=== PATIENT | male | born 1970 | race African-American/Black ===

== ENCOUNTER 2018-01-21 04:21 | Emergency (ER) | payer OTHER ==
[~2018-01-21] VITALS: Ht 170.2 cm; Wt 77.0 kg
[2018-01-21 05:07] LABS: BASOPHILS % 1.1 % (0.0-2.0); EOSINOPHILS % 0.9 % (0.0-5.0); HEMATOCRIT. 32.1 % (42.0-52.0); HEMOGLOBIN. 11.5 g/dL (14.0-18.0); LYMPHOCYTES % 29.1 % (20.0-50.0); MEAN CORPUSCULAR HEMOGLOBIN 37.3 pg (28.0-32.0); MEAN CORPUSCULAR VOLUME 104.4 fL (80.0-94.0); MONOCYTES % 8.9 % (2.0-8.0); RED BLOOD CELL COUNT 3.08 mill/uL (4.7-6.1); RED CELL DISTRIBUTION WIDTH 15.2 % (11.6-14.6)
[2018-01-21 05:11] LABS: CHLORIDE 101 mEq/L (98-107)
[2018-01-21 05:14] LABS: INR 1.9; PROTHROMBIN TIME 19.7 sec (9.4-11.6)
[2018-01-21 05:21] LABS: T4 FREE 1.34 ng/dL (0.76-1.46)
[2018-01-21 05:32] LABS: MEAN PLATELET VOLUME 8.7 fl (7.4-10.4)
[2018-01-21 05:33] LABS: PLATELET 75 x1000/uL (130-400)
[2018-01-21] MEDS ORDERED: SODIUM CHLORIDE 0.9% 1,000 ML IV ONE (06:35)
[2018-01-21 07:33] LABS: D-DIMER 0.71 mg/L FEU (<0.50); PROTHROMBIN TIME 21.1 sec (9.4-11.6)
[2018-01-21] MEDS ORDERED: IOHEXOL-350 100 ML BOTTLE ONE ×2 (09:35→09:47)
[2018-01-21 11:00] VITALS: BP 120/88
== END 2018-01-21 11:03 | disposition home or self-care (01) ==
LOC: ER 04:30
DX: R00.2 Palpitations (principal); D69.6 Thrombocytopenia, unspecified; D53.9 Nutritional anemia, unspecified; D68.9 Coagulation defect, unspecified; R79.89 Other specified abnormal findings of blood chemistry; I10 Essential (primary) hypertension; F43.10 Post-traumatic stress disorder, unspecified; Z88.0 Allergy status to penicillin
CPT/HCPCS: 36415; 71045; 71275; 80053; 83880; 84439; 84443; 84484; 85025; 85379; 85610; 96360; 96361; 99285; G0482; J7030; Q9967; 93005

== ENCOUNTER 2019-01-06 15:36 | Emergency (ER) | payer OTHER ==
[~2019-01-06] VITALS: Ht 170.2 cm; Wt 81.0 kg
[2019-01-06 15:45] VITALS: BP 134/87
== END 2019-01-06 16:32 | disposition home or self-care (01) ==
LOC: ER 15:36
DX: B00.9 Herpesviral infection, unspecified (principal); K76.9 Liver disease, unspecified; I10 Essential (primary) hypertension; Z88.0 Allergy status to penicillin
CPT/HCPCS: 99281

== ENCOUNTER 2024-10-04 03:10 | Emergency (ER) | payer OTHER ==
[~2024-10-04] VITALS: Ht 170.2 cm; Wt 88.0 kg
[2024-10-04 03:46] VITALS: TEMP 98.4; O2SAT 98
[2024-10-04 04:45] LABS: CHLORIDE 106 mEq/L (98-107); POTASSIUM 3.5 mEq/L (3.5-5.1); SODIUM 137 mEq/L (136-145)
[2024-10-04 04:46] LABS: CALCIUM 10.2 mg/dL (8.7-10.4); CARBON DIOXIDE 20 mEq/L (21-32)
[2024-10-04 04:48] LABS: BASOPHILS % 0.4 % (0.0-2.0); DIFFERENTIAL COMMENT 0; EOSINOPHILS % 0.3 % (0.0-5.0); HEMOGLOBIN. 11.1 g/dL (14.0-18.0); INR 1.3; MEAN CORPUSCULAR HEMOGLOBIN 35.8 pg (28.0-32.0); MEAN CORPUSCULAR HGB CONC 33.6 g/dL (31.0-37.0); MEAN CORPUSCULAR VOLUME 106.6 fL (80.0-94.0); MONOCYTES % 8.5 % (2.0-8.0); NEUTROPHILS % 75.8 % (40.0-76.0); PLATELET 116 x1000/uL (130-400); PROTHROMBIN TIME 14.6 sec (9.6-11.0); RED BLOOD CELL COUNT 3.09 mill/uL (4.7-6.1); RED CELL DISTRIBUTION WIDTH 14.3 % (11.6-14.6); WHITE BLOOD COUNT 6.9 x1000/uL (4.5-11.0)
[2024-10-04 04:51] LABS: CREATININE 0.9 mg/dL (0.6-1.3); GLUCOSE 99 mg/dL (70-105); UREA NITROGEN BLOOD 8 mg/dL (9-23)
[2024-10-04 04:52] LABS: ALANINE AMINOTRANSFERASE 69 IU/L (10-49); ALBUMIN 3.6 g/dL (3.2-4.8); ASPARTATE AMINOTRANSFERASE 186 IU/L (<34); BILIRUBIN DIRECT 1.7 mg/dL (<=3.0); BILIRUBIN TOTAL 3.1 mg/dL (0.1-1.0); LACTIC ACID 2.3 mmol/L (0.4-2.0); TROPONIN I HIGH SENSITIVITY 8 ng/L (3.0-53)
[2024-10-04 04:53] LABS: PROTEIN TOTAL 8.8 g/dL (6.0-8.3)
[2024-10-04] MEDS ORDERED: PHEN15SP16 NS (06:30)
[2024-10-04 07:21] VITALS: BP 118/70; PULSE 125; RESP 21; O2SAT 98
== END 2024-10-04 07:22 | disposition home or self-care (01) ==
LOC: ER 03:35
DX: R04.0 Epistaxis (principal); J45.909 Unspecified asthma, uncomplicated; I10 Essential (primary) hypertension; Z88.0 Allergy status to penicillin; Z98.890 Other specified postprocedural states
CPT/HCPCS: 36415; 71045; 80048; 80076; 83605; 84484; 85025; 86850; 86900; 93005; 99285